=== PATIENT | female | born 1975 | race Native Hawaiian/Other Pacific Islander ===

== ENCOUNTER 2022-11-27 18:07 | Emergency (ER) | payer BC ==
[~2022-11-27] VITALS: Ht 149.9 cm; Wt 79.4 kg
[2022-11-27 18:10] VITALS: TEMP 97.5
[2022-11-27 19:15] VITALS: BP 138/84
== END 2022-11-27 19:15 | disposition home or self-care (01) ==
LOC: ED 18:07
DX: R00.2 Palpitations (principal)
CPT/HCPCS: 93005; 99282

== ENCOUNTER 2022-12-11 14:55 | Outpatient (CLI) | payer BC | END 2022-12-11 22:30 | disposition home or self-care (01) | LOC: RAD 14:55 | PROVIDERS: ATTEND Internal Medicine | DX: R07.2 Precordial pain (principal) ==